=== PATIENT | female | born 1995 | race American Indian/Alaskan Native ===

== ENCOUNTER 2018-12-24 12:19 | Emergency (ER) | payer SELFPAY ==
[2018-12-24 12:56] VITALS: BP 120/77
[2018-12-24] MEDS ORDERED: diazePAM 5 MG TAB PO ONE (14:01)
[2018-12-24] MEDS ORDERED: BUTALB/ACETAMINOPHEN/CAFFEINE TAB PO ONE (14:01)
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
== END 2018-12-24 15:28 | disposition home or self-care (01) ==
LOC: ED 12:19
DX: G44.209 Tension-type headache, unspecified, not intractable (principal); Z79.899 Other long term (current) drug therapy
CPT/HCPCS: 99282